=== PATIENT | female | born 1980 | race Caucasian/White ===

== ENCOUNTER 2017-04-21 07:46 | Inpatient (IN) | payer OTHER ==
[~2017-04-21] VITALS: Ht 170.2 cm; Wt 99.0 kg
[2017-04-21 07:57] VITALS: Ht 170.2 cm; Wt 99.0 kg
[2017-04-21] MEDS ORDERED: PREN-93 PO (07:57)
[2017-04-21 07:58] VITALS: BP 129/88; PULSE 81; RESP 18
--- NOTE | 2017-04-21 08:07 | TRIAGE ---
OB Triage Datetime Report Generated by CPN: 04/21/2017 08:07 Datetime: 04/21/2017 07:59 Vaginal Exam Dilatation (cms): 3.0 Effacement (%): 70 Station: -2 Exam By: neil Vaginal Bleeding: None Cervix, Consistency: Soft Cervix, Position: Midposition Datetime: 04/21/2017 07:54 Assessment Type: Triage Maternal Assessment Level of Consciousness: Fully Conscious DTR's/Clonus: DTRs 2+; No Clonus Headache: Denies Blurred Vision: No Respiratory Effort: Unlabored; Regular Rhythm; Equal Expansion Breath Sounds, Left: Clear and Equal Breath Sounds, Right: Clear and Equal Nausea/Vomiting: Denies RUQ Epigastric Pain: Denies Lower Extremities Edema: None Degree: None Upper Extremities Edema: None Degree: None Facial Edema: None Fall Risk Assessment History of Falling: (0) No Secondary Diagnosis: (0) No Ambulatory Aid: (0) Bedrest/Nurse Assist IV Therapy: (0) No Gait: (0) Normal/Bedrest/Immobile Mental Status: (0) Oriented to Own Ability Fall Score: 0 Fall Risk Score Definition: No Risk: No action required Datetime: 04/21/2017 07:53 Time of Arrival: 04/21/2017 07:39 EGA: 39.3 Arrived By: Ambulatory Arrived From: Home Chief Complaint: PT HERE C/O UC'S SINCE 0300 Movement: Present Contractions: Irregular Rupture of Membranes: Denies Vaginal Bleeding: None Vaginal Discharge: Denies Recent Sexual Intercouse: Denies Abdominal Trauma: Not Applicable Patient Complaints: Contractions; Cramping; Back Pain Time Provider Notified: 04/21/2017 08:05 Provider Notified: STANLEY Initial Plan: EFM/SVE Datetime: 04/21/2017 07:51 Labor Evaluation Monitor Mode: External Heart Rate Monitor Mode: External US
[2017-04-21] MEDS ORDERED: IBUPROFEN 600 MG TAB PO PRN (08:30)
[2017-04-21] MEDS ORDERED: AMPICILLIN 2 GM/NS (PMX) 100 ML IV ONE (08:30)
[2017-04-21] MEDS ORDERED: OXYTOCIN 30 UNITS/LR 500 ML IV PRN ×2 (08:30→17:30)
[2017-04-21] MEDS ORDERED: CARBOPROST 250 MCG INJ IM PRN ×2 (08:30→17:30)
[2017-04-21] MEDS ORDERED: METHYLERGONOVINE 0.2 MG INJ IM PRN ×2 (08:30→17:30)
[2017-04-21] MEDS ORDERED: LIDOCAINE 1% (MPF) 30 ML INJ INJ PRN (08:30)
[2017-04-21] MEDS ORDERED: BUTORPHANOL 2 MG INJ IV PRN (08:30)
[2017-04-21] MEDS ORDERED: LACTATED RINGER'S 1,000 ML IV PRN (08:30)
[2017-04-21] MEDS ORDERED: MISOPROSTOL 200 MCG TAB PR PRN ×2 (08:30→17:30)
[2017-04-21] MEDS ORDERED: OXYTOCIN 30 UNITS/LR 500 ML IV SCH (08:30)
[2017-04-21] MEDS: LACTATED RINGER'S 1,000 ML IV SCH ×2 (08:33→10:59)
[2017-04-21] MEDS ORDERED: FENTAnyl 2MCG/ML-ROPIV 0.2% 100 ML ONE (10:22)
[2017-04-21] MEDS ORDERED: MINERAL OIL LIGHT 10 ML VIAL TOP PRN (10:30)
[2017-04-21] MEDS ORDERED: AMPICILLIN 1 GM/NS (PMX) 50 ML IV SCH (12:30)
[2017-04-21] MEDS: OXYTOCIN 30 UNITS/LR 500 ML IV SCH ×2 (14:03→14:05)
--- NOTE | 2017-04-21 14:03 | HP ---
Date/Time of Note Date/Time of Note DATE: 04/21/17 TIME: 14:00 OB - History Hx of Present Free Text/Dictation admitted in labor at term Last Menstrual Period: Jul 19, 2016 Estimated Due Date: Apr 25, 2017 : 5 Para: 4 Care: Good Care Past Family/Social History * Past Medical, Surgical, Family and Obstetric Histories reviewed from chart. Blood Type: O+ Rubella: immune RPR/VDRL: Negative GBS Status: Positive HBsAG: Negative OB Admission Exam Vital Signs Vital Signs Vital Signs Date Time Temp Pulse Resp B/P Pulse Ox O2 Delivery O2 Flow Rate FiO2 04/21/17 07:58 99.1 81 18 129/88 98 Room Air Physical Exam HEENT: WNL Heart: Rhythm Normal Lungs: Clear, Equal Abdomen: WNL Extremities: Normal Reflexes: Normal Cervical Dilatation: 2cm Effacement: 75% Station: -3 Membranes: Intact Heart Rate: 130's Accelerations: Accelerations Present Decelerations: No Decelerations Varibility: Moderate Contractions on Admission: < 5 Minutes Apart Date/Time Contractions Began: 04/21/2017 0300 AM Frequency of Contractions: q 3-4 min Duration: >60 seconds Intensity: Firm Last 72 hours Lab Results CBC & BMP 04/21/17 08:34 OB Assessment/Plan Other Assessment: term gestation labor pains Other plan: proceed with spontaneous labor JEREMY EARLY MD Apr 21, 2017 14:03
--- NOTE | 2017-04-21 14:17 | LDN ---
Date/Time of Note Date/Time of Note DATE: 04/21/17 TIME: 14:15 Delivery Summary Normal spontaneous vaginal delivery of a viable over intact perineum Weeks of Gestation 39+ Placenta Delivered: Spontaneously, Intact & Complete Meconium: Particulate Episiotomy: No Perineal laceration: 0 Anesthesia type: Epidural Estimated blood loss: 300 Sponge & Needle done & correct: Yes All needle counts correct: Yes Any foreign bodies felt in the: No Problems: Infant Delivery Information Sex Infant Sex: male Apgars 1 Minute: 9 5 Minute: 9 Suctioning Nose & mouth suctioned at valentin: Yes Delee suction performed: No Umbilical Cord Umbilical cord with: 3 Vessels Cord presentations: no nuchal cord Cord Blood was obtained: Yes Mother & Baby Disposition Disposition Mom & Baby to Maternity; Good: Yes (Mother and baby were recovered in good condition) Mom transferred to: Other (Maternity) Baby to NICU: No JEREMY EARLY MD Apr 21, 2017 14:17
--- NOTE | 2017-04-21 14:17 | LDN ---
Date/Time of Note Date/Time of Note DATE: 04/21/17 TIME: 14:15 Delivery Summary Normal spontaneous vaginal delivery of a viable over intact perineum Weeks of Gestation 39+ Placenta Delivered: Spontaneously, Intact & Complete Meconium: Particulate Episiotomy: No Perineal laceration: 0 Anesthesia type: Epidural Estimated blood loss: 300 Sponge & Needle done & correct: Yes All needle counts correct: Yes Any foreign bodies felt in the: No Problems: Infant Delivery Information Sex Infant Sex: male Apgars 1 Minute: 9 5 Minute: 9 Suctioning Nose & mouth suctioned at vaelntin: Yes Delee suction performed: No Umbilical Cord Umbilical cord with: 3 Vessels Cord presentations: no nuchal cord Cord Blood was obtained: Yes Mother & Baby Disposition Disposition Mom & Baby to Maternity; Good: Yes (Mother and baby were recovered in good condition) Mom transferred to: Other (Maternity) Baby to NICU: No JEREMY EARLY MD Apr 21, 2017 14:17
[2017-04-21] MEDS ORDERED: DIPHENHYDRAMINE 50 MG INJ IV PRN (14:30)
[2017-04-21] MEDS ORDERED: NALOXONE (0.4 MG/ML) INJ IV PRN (14:30)
[2017-04-21] MEDS ORDERED: ONDANSETRON 4 MG INJ IV PRN (14:30)
[2017-04-21] MEDS ORDERED: FENTAnyl 2MCG/ML-ROPIV 0.2% 100 ML BAG EPI SCH (14:30)
[2017-04-21 17:00] VITALS: BP 121/72; PULSE 51; RESP 17
[2017-04-21] MEDS ORDERED: LACTATED RINGER'S 1,000 ML IV* SCH (17:05)
[2017-04-21] MEDS ORDERED: WITCH HAZEL/GLYCERIN PAD PR PRN (17:30)
[2017-04-21] MEDS ORDERED: DIBUCAINE 1% 30 GM OINT PR PRN (17:30)
[2017-04-21] MEDS ORDERED: BENZOCAINE 20% 56 ML SPRAY TOP PRN (17:30)
[2017-04-21] MEDS ORDERED: HYDROCODONE/APAP (5/325) TAB PO PRN ×2 (17:30)
[2017-04-21] MEDS ORDERED: LANOLIN 7 GM TUBE TOP PRN (17:30)
[2017-04-21] MEDS ORDERED: ZOLPIDEM 5 MG TAB PO PRN (17:30)
[2017-04-21] MEDS: IBUPROFEN 600 MG TAB PO SCH ×2 (17:49→23:32)
[2017-04-21] MEDS: CEPHALEXIN 500 MG CAP PO SCH ×2 (17:49→23:31)
[2017-04-21 19:45] VITALS: BP 108/58; PULSE 69; RESP 17
[2017-04-21] MEDS: MAGNESIUM HYDROXIDE 30ML CUP PO SCH (21:06)
[2017-04-21] MEDS: SENNA/DOCUSATE NA (8.6MG/50MG) TAB PO SCH (21:07)
[2017-04-21 23:32] VITALS: BP 110/60; PULSE 70; RESP 18
[2017-04-22 04:05] VITALS: BP 108/62; PULSE 56; RESP 19
[2017-04-22] MEDS: CEPHALEXIN 500 MG CAP PO SCH ×4 (05:12→23:45)
[2017-04-22] MEDS: IBUPROFEN 600 MG TAB PO SCH ×4 (05:14→23:45)
[2017-04-22 08:25] VITALS: BP 114/74; PULSE 59; RESP 18
[2017-04-22] MEDS: SENNA/DOCUSATE NA (8.6MG/50MG) TAB PO SCH ×2 (10:07→21:00)
[2017-04-22] MEDS: MAGNESIUM HYDROXIDE 30ML CUP PO SCH ×2 (10:07→21:00)
[2017-04-22 11:46] VITALS: BP 125/81; PULSE 72; RESP 20
--- NOTE | 2017-04-22 14:28 | DS ---
Date/Time of Note Date/Time of Note Home following day DATE: 04/22/17 TIME: 14:27 Obstetrical Discharge Record Final Diagnosis Final Diagnosis: Term delivered Other Final Diagnosis Status post vaginal delivery Vaginal Delivery Obstetrical Delivery: Spontaneous Complications Augmentation: Yes Condition on Discharge Physical Assessment Last Vitals: See nurse's notes Voiding: Yes Bowel Movement: Yes Breast: Soft, non-tender, Filling Fundus: Firm Abdomen and Incision: Abdomen is soft bowel sounds present Episiotomy: Not applicable Calf Tenderness: No Patient Condition: Good JEREMY EARLY MD Apr 22, 2017 14:28
--- NOTE | 2017-04-22 14:29 | PD.PPDC ---
CAMPUS ADMINISTRATIVE ASSISTANT Discharge Instruction Provider Information Physician Information 36-year-old female had vaginal delivery Diagnosis Final Diagnosis: Status post vaginal delivery Condition Patient Condition: Good Diet Diet: Resume Regular Diet Activity/Restrictions Activity: Normal Activity May Shower Return to Work or School: Jun 06, 2017 Follow-up Follow-up with Physician: 4, Week/Weeks (In clinic) Return to clinic for OB Instructions: Breast Tenderness Depression Comment: Pelvic rest 6 weeks JEREMY EARLY MD Apr 22, 2017 14:29
[2017-04-22] MEDS ORDERED: IBUP-1542 PO (14:30)
[2017-04-22 15:40] VITALS: BP 112/68; PULSE 55; RESP 16
[2017-04-22 19:45] VITALS: BP 117/75; PULSE 63; RESP 18
[2017-04-23 04:59] VITALS: BP 114/78; PULSE 55; RESP 18
[2017-04-23] MEDS: CEPHALEXIN 500 MG CAP PO SCH ×2 (05:53→13:00)
[2017-04-23] MEDS: IBUPROFEN 600 MG TAB PO SCH ×2 (05:53→13:00)
[2017-04-23] MEDS ORDERED: MEASLES,MUMPS,RUBELLA VACCINE INJ SC* ONE (09:00)
[2017-04-23] MEDS: SENNA/DOCUSATE NA (8.6MG/50MG) TAB PO SCH ×2 (09:00→09:43)
[2017-04-23] MEDS ORDERED: VARICELLA VACCINE LIVE/PF 1,350 UNIT/0.5 ML ML SC* ONE (09:00)
[2017-04-23] MEDS ORDERED: DIPHTH/TET/ACEL PERTUSS (ADULT) 0.5 ML VIAL IM* ONE (09:00)
[2017-04-23] MEDS: MAGNESIUM HYDROXIDE 30ML CUP PO SCH ×2 (09:00→09:43)
[2017-04-23 09:15] VITALS: BP 123/83; PULSE 81; RESP 18
== END 2017-04-23 15:20 | disposition home or self-care (01) | DRG 775 ==
LOC: OBT 07:46 → L-D 07:46 → OBT 08:16 → PP1 16:50
PROVIDERS: ADMIT Obstetrics & Gynecology; ATTEND Obstetrics & Gynecology
PROC: 10E0XZZ Delivery of Products of Conception, External Approach (ICD-10-PCS; principal; 2017-04-21)
PROC: 3E0P3VZ Introduction of Hormone into Female Reproductive, Percutaneous Approach (ICD-10-PCS; 2017-04-21)
DX: O99.214 Obesity complicating childbirth (principal); E66.01 Morbid (severe) obesity due to excess calories; Z68.34 Body mass index [BMI] 34.0-34.9, adult; Z3A.39 39 weeks gestation of pregnancy; Z37.0 Single live birth
CPT/HCPCS: 36415; 62319; 85025; 85610; 85730; 86592; 86900; 86901; 87340; 90715; 90716; G0463; J0290; J2590; J3010; J7120

== ENCOUNTER 2018-06-25 02:28 | Inpatient (IN) | payer OTHER ==
[~2018-06-25] VITALS: Ht 170.2 cm; Wt 96.7 kg
[~2018-06-25 02:28] MED LIST: IBUP-1542 PO; PREN-93 PO
[2018-06-25 02:47] VITALS: Ht 170.2 cm; Wt 96.7 kg
--- NOTE | 2018-06-25 02:55 | TRIAGE ---
OB Triage Datetime Report Generated by CPN: 06/25/2018 02:54 Datetime: 06/25/2018 02:48 Time of Arrival: 06/25/2018 02:25 EGA: 39.5 Arrived By: Wheelchair Arrived From: Home Movement: Present Contractions: Denies/Absent Time Contractions Began: 06/24/2018 21:00 Rupture of Membranes: Denies Vaginal Bleeding: None Vaginal Discharge: Denies Recent Sexual Intercouse: Denies Abdominal Trauma: Not Applicable Patient Complaints: Contractions Time Provider Notified: 06/25/2018 02:38 Provider Notified: [email or web address]/[email or web address] Datetime: 06/25/2018 02:33 Vaginal Exam Dilatation (cms): 4.0 Effacement (%): 70 Station: -3 Exam By: geovanny almanzar Vaginal Bleeding: None Cervix, Consistency: Soft Cervix, Position: Midposition Presentation 'A': Cephalic Datetime: 06/25/2018 02:29 Stage of : OB Triage
[2018-06-25 03:00] VITALS: BP 126/81; PULSE 66; RESP 20
[2018-06-25] MEDS ORDERED: LIDOCAINE 1% (MPF) 30 ML INJ INJ PRN (03:00)
[2018-06-25] MEDS ORDERED: MINERAL OIL LIGHT 10 ML VIAL TOP PRN (03:00)
[2018-06-25] MEDS ORDERED: OXYTOCIN 30 UNITS/LR 500 ML IV SCH (03:00)
[2018-06-25] MEDS ORDERED: METHYLERGONOVINE 0.2 MG INJ IM PRN ×2 (03:00→12:30)
[2018-06-25] MEDS ORDERED: AMPICILLIN 2 GM/NS (PMX) 100 ML IV ONE (03:00)
[2018-06-25] MEDS ORDERED: CARBOPROST 250 MCG INJ IM PRN ×2 (03:00→12:30)
[2018-06-25] MEDS ORDERED: IBUPROFEN 600 MG TAB PO PRN (03:00)
[2018-06-25] MEDS ORDERED: BUTORPHANOL 2 MG INJ IV PRN (03:00)
[2018-06-25] MEDS ORDERED: MISOPROSTOL 200 MCG TAB PR PRN ×2 (03:00→12:30)
[2018-06-25] MEDS ORDERED: OXYTOCIN 30 UNITS/LR 500 ML IV PRN ×2 (03:00→12:30)
[2018-06-25] MEDS: LACTATED RINGER'S 1,000 ML IV SCH ×2 (03:18→05:02)
--- NOTE | 2018-06-25 04:55 | PREAC ---
Date/Time of Note Date/Time of Note DATE: 06/25/18 TIME: 04:54 Anesthesia Eval and Record Evaluation Time Pre-Procedure Interview DATE: 06/25/18 TIME: 03:59 Age 38 Sex female NPO: 8 hrs Preoperative diagnosis iup @ 38 wks, , labor Planned procedure marilynn Past Medical History Past Medical History: Includes : : (6), Para: (5) Surgery & Anesthesia Issues No known issue Meds Anticoagulation: No Beta Jose within 24 hr: No Reason Beta Jose not given: Pt. not on B-Jose Active Scripts Ibuprofen* (Ibuprofen*) 600 Mg Tablet, 600 MG PO Q6, #30 TAB 0 Refills Prov:JEREMY EARLY MD 04/22/17 Reported Medications Vit No.124/Iron/FA ( Vitamin Tablet) 1 Each Tablet, 1 EACH PO DAILY, TAB 04/21/17 Current Medications Lactated Ringer's 1,000 ml @ 125 mls/hr Q8H IV Last administered on 06/25/18at 03:18; Admin Dose 125 MLS/HR; Start 06/25/18 at 02:44 Ampicillin 50 ml @ 100 mls/hr Q4H IV ; Start 06/25/18 at 07:00 Butorphanol Tartrate (Stadol) 2 mg Q2H PRN IV PAIN; Start 06/25/18 at 03:00 Lidocaine (Xylocaine 1% (Mpf)) 30 ml ONCE PRN INJ EPISIOTOMY; Start 06/25/18 at 03:00 Oxytocin/Lactated Ringer's 500 ml @ 500 mls/hr ONCE POST IV ; Start 06/25/18 at 03:00 Oxytocin/Lactated Ringer's 500 ml @ 125 mls/hr POST IV ; Start 06/25/18 at 03:00 Ibuprofen (Motrin) 600 mg ONCE PRN PO PAIN LEVEL 1-5; Start 06/25/18 at 03:00 Oxytocin/Lactated Ringer's 500 ml @ 0 mls/hr ONCE PRN IV VAGINAL BLEEDING; Start 06/25/18 at 03:00 Methylergonovine Maleate (Methergine) 0.2 mg ONCE PRN IM VAGINAL BLEEDING; Start 06/25/18 at 03:00 Carboprost Tromethamine (Hemabate) 250 mcg ONCE PRN IM VAGINAL BLEEDING; Start 06/25/18 at 03:00 Misoprostol (Cytotec) 1,000 mcg ONCE PRN WV VAGINAL BLEEDING; Start 06/25/18 at 03:00 Mineral Oil (Muri-Lube) 20 ml ONCE PRN TOP vaginal delivery; Start 06/25/18 at 03:00 Meds reviewed: Yes Allergies Coded Allergies: No Known Allergy (Verified , 06/25/18) Allergies Reviewed: Yes Labs/Studies Labs Reviewed: Reviewed by anesthesiologist Result Diagram: 06/25/18 0310 Laboratory Tests 06/25/18 03:10 Blood Bank Test 06/25/18 03:10 Antibody Screen NEGATIVE Blood Type O POSITIVE Rh Immune Globulin Candidate NO test: Positive Studies: ECG (n/a), CXR (n/a) Pre-procedure Exam Last vitals Vital Signs Date Temp Pulse Resp B/P (MAP) Pulse Ox O2 O2 Flow FiO2 Time Delivery Rate 06/25/18 98.5 66 20 126/81 Room Air 03:00 (96) Airway: Adequate mouth opening, Adequate thyromental dist Mallampati: Mallampati II Teeth: Normal Lung: Normal Heart: Normal ASA Physical Status ASA physical status: 2 Emergency: E Planned Anesthetic Neuraxial: Epidural Planned Pain Management Local by surgeon Pre-operative Attestations Prior to commencing anesthesia and surgery, the patient was re-evaluated, there was verification of: *The patient's identity *The results of appropriate recent lab work and preoperative vital signs *The above evaluation not changing prior to induction *Anesthetic plan, risk benefits, alternative and complications discussed with patient/family; questions answered; patient/family understands, accepts and wishes to proceed. [employer] Agent used ERIC BOLDEN MD Jun 25, 2018 04:55
--- NOTE | 2018-06-25 04:56 | PAC ---
Date/Time of Note Date/Time of Note DATE: 06/25/18 TIME: 23:30 Post-Anesthesia Notes Post-Anesthesia Note Last documented vital signs Vital Signs Date Temp Pulse Resp B/P (MAP) Pulse Ox O2 O2 Flow FiO2 Time Delivery Rate 06/25/18 98.5 66 20 126/81 Room Air 03:00 (96) Activity: WNL Respiratory function: WNL Cardiovascular function: WNL Mental status: Baseline Pain reasonably controlled: Yes Hydration appropriate: Yes Nausea/Vomiting absent: Yes ERIC BOLDEN MD Jun 25, 2018 04:56
[2018-06-25] MEDS ORDERED: FENTAnyl 2MCG/ML-ROPIV 0.2% 100 ML ONE (04:57)
[2018-06-25] MEDS ORDERED: DIPHENHYDRAMINE 50 MG INJ IV PRN (05:00)
[2018-06-25] MEDS ORDERED: NALOXONE (0.4 MG/ML) INJ IV PRN (05:00)
[2018-06-25] MEDS ORDERED: FENTAnyl 2MCG/ML-ROPIV 0.2% 100 ML BAG EPI SCH (05:00)
[2018-06-25] MEDS ORDERED: NALBUPHINE HCL (10 MG/1 ML) INJ IV PRN (05:00)
[2018-06-25] MEDS ORDERED: AMPICILLIN 1 GM/NS (PMX) 50 ML IV SCH (07:00)
[2018-06-25] MEDS: OXYTOCIN 30 UNITS/LR 500 ML IV SCH ×2 (09:59→10:29)
--- NOTE | 2018-06-25 09:59 | HP ---
Date/Time of Note Date/Time of Note DATE: 06/25/18 TIME: 09:56 OB - History Hx of Present Free Text/Dictation 38-year-old female 6 para 5 at 39 weeks and 5 days gestation admitted complaining of onset of uterine contractions started 9 PM every 5 7-minute Estimated Due Date: Jun 27, 2018 : 6 Para: 5 Care: Good Care Ultrasounds: Normal mid trimester US Obstetrical Complications: Other (Grand multiparity and advanced maternal age) Medical Complications: None Past Family/Social History * Past Medical, Surgical, Family and Obstetric Histories reviewed from chart. Blood Type: O+ Rubella: immune RPR/VDRL: Negative GBS Status: Positive HBsAG: Negative OB Admission Exam Vital Signs Vital Signs Vital Signs Date Temp Pulse Resp B/P (MAP) Pulse Ox O2 O2 Flow FiO2 Time Delivery Rate 06/25/18 98.5 66 20 126/81 Room Air 03:00 (96) Physical Exam HEENT: WNL Heart: Rhythm Normal Lungs: Clear, Equal Abdomen: WNL Extremities: Normal Reflexes: Normal Cervical Dilatation: 4cm Effacement: 75% Station: -3 Membranes: Intact Heart Rate: 140's Accelerations: Accelerations Present Decelerations: No Decelerations Varibility: Moderate Contractions on Admission: 6-10 Minutes Apart Date/Time Contractions Began: June 24, 2018 at 2100 p.m. Frequency of Contractions: Every 5-7 minutes Duration: Over 1 minute Intensity: Moderate Last 72 hours Lab Results CBC & BMP 06/25/18 03:10 OB Assessment/Plan Other Assessment: Term gestation and labor pains Other plan: Proceed with spontaneous labor JEREMY EARLY MD Jun 25, 2018 09:59
[2018-06-25] MEDS ORDERED: KETOROLAC 30 MG INJ IV STA (10:02)
--- NOTE | 2018-06-25 10:02 | LDN ---
Date/Time of Note Date/Time of Note DATE: 06/25/18 TIME: 10:00 Delivery Summary Normal spontaneous vaginal delivery of a viable infant over intact perineum Weeks of Gestation 39 weeks and 5 days Placenta Delivered: Spontaneously, Intact & Complete Meconium: Light Episiotomy: No Perineal laceration: 0 Anesthesia type: Epidural Estimated blood loss: 200 Sponge & Needle done & correct: Yes All needle counts correct: Yes Any foreign bodies felt in the: No Infant Delivery Information Sex Infant Sex: female Apgars 1 Minute: 8 5 Minute: 9 Suctioning Nose & mouth suctioned at valentin: Yes Delee suction performed: No Umbilical Cord Umbilical cord with: 3 Vessels Cord presentations: nuchal cord Nuchal cord present X: 1 Cord Blood was obtained: Yes Mother & Baby Disposition Disposition Mom & Baby to Maternity; Good: Yes (Mother and baby were recovering in good condition) Mom transferred to: Other (Maternity) Baby to NICU: No JEREMY EARLY MD Jun 25, 2018 10:02
[2018-06-25 12:15] VITALS: BP 133/74; PULSE 47; RESP 20
[2018-06-25] MEDS ORDERED: HYDROCODONE/APAP (5/325) TAB PO PRN ×2 (12:30)
[2018-06-25] MEDS ORDERED: DIBUCAINE 1% 30 GM OINT TOP PRN (12:30)
[2018-06-25] MEDS ORDERED: ZOLPIDEM 5 MG TAB PO PRN (12:30)
[2018-06-25] MEDS ORDERED: LANOLIN HPA 1 PKT TOP PRN (12:30)
[2018-06-25] MEDS ORDERED: WITCH HAZEL/GLYCERIN PAD PR PRN (12:30)
[2018-06-25] MEDS ORDERED: BENZOCAINE 20% 56 ML SPRAY TOP PRN (12:30)
[2018-06-25 12:55] VITALS: BP 130/78; PULSE 60; RESP 20
[2018-06-25] MEDS: CEPHALEXIN 500 MG CAP PO SCH ×3 (12:55→23:48)
[2018-06-25] MEDS: IBUPROFEN 600 MG TAB PO SCH ×3 (12:55→23:49)
[2018-06-25] MEDS: LACTATED RINGER'S 1,000 ML IV* SCH ×2 (14:42→20:14)
[2018-06-25 15:37] VITALS: BP 111/64; PULSE 60; RESP 16
[2018-06-25 19:55] VITALS: BP 116/71; PULSE 61
[2018-06-25] MEDS: SENNA/DOCUSATE NA (8.6MG/50MG) TAB PO SCH (21:20)
[2018-06-25] MEDS: MAGNESIUM HYDROXIDE 30ML CUP PO SCH (21:20)
[2018-06-26] VITALS: BP 110/62; PULSE 58; RESP 16
[2018-06-26 04:10] VITALS: BP 110/60; PULSE 63; RESP 18
[2018-06-26] MEDS: LACTATED RINGER'S 1,000 ML IV* SCH ×3 (04:14→20:14)
[2018-06-26] MEDS: IBUPROFEN 600 MG TAB PO SCH ×3 (05:56→17:35)
[2018-06-26] MEDS: CEPHALEXIN 500 MG CAP PO SCH ×3 (05:56→17:34)
[2018-06-26 08:20] VITALS: BP 104/60; PULSE 59; RESP 18
[2018-06-26] MEDS: SENNA/DOCUSATE NA (8.6MG/50MG) TAB PO SCH ×2 (09:00→20:37)
[2018-06-26] MEDS: MAGNESIUM HYDROXIDE 30ML CUP PO SCH ×2 (09:00→20:37)
--- NOTE | 2018-06-26 14:57 | DS ---
Date/Time of Note Date/Time of Note Home today or next day DATE: 06/26/18 TIME: 14:56 Obstetrical Discharge Record Final Diagnosis Final Diagnosis: Term delivered Other Final Diagnosis Status post vaginal delivery Vaginal Delivery Obstetrical Delivery: Spontaneous Condition on Discharge Physical Assessment Last Vitals: See nurse's notes Voiding: Yes Bowel Movement: Yes Breast: Soft, non-tender, Filling Fundus: Firm Abdomen and Incision: Abdomen is soft with present bowel sounds Fundus is firm at the U Episiotomy: Not applicable There are numerous clean Calf Tenderness: No Patient Condition: Good JEREMY EARLY MD Jun 26, 2018 14:57
--- NOTE | 2018-06-26 14:58 | PD.PPDC ---
TRANSPORT AIDE Discharge Instruction Provider Information Physician Information 38-year-old female had vaginal delivery Diagnosis [id number] Final Diagnosis: Bziea2p Status post vaginal delivery Condition [id number] Patient Condition: [id number] Good Diet [id number] Diet: [id number] Resume Regular Diet Activity/Restrictions [id number] Activity: Aophr1m Normal Activity May Shower [id number] Restrictions: [id number] Nothing in the Vagina [id number] Return to Work or School: [id number] Aug 14, 2018 Follow-up Follow-up with Physician: 2, 4, Week/Weeks (In clinic) Return to clinic for [id number] OB Instructions: Jeavw4a Breast Tenderness Depression Comment: Pelvic rest for 6 weeks JEREMY EARLY MD Jun 26, 2018 14:58
[2018-06-26] MEDS ORDERED: IBUP-1542 PO (14:59)
[2018-06-26 16:00] VITALS: BP 121/72; PULSE 59; RESP 18
[2018-06-26 19:30] VITALS: BP 133/82; PULSE 64; RESP 18
[2018-06-26] MEDS: ACETAMINOPHEN 325 MG TAB PO SCH (19:34)
[2018-06-27] MEDS: CEPHALEXIN 500 MG CAP PO SCH ×3 (00:44→12:01)
[2018-06-27] MEDS: IBUPROFEN 600 MG TAB PO SCH ×3 (00:44→12:01)
[2018-06-27] MEDS: ACETAMINOPHEN 325 MG TAB PO SCH ×2 (00:44→09:17)
[2018-06-27] MEDS: LACTATED RINGER'S 1,000 ML IV* SCH (04:14)
[2018-06-27 04:24] VITALS: BP 113/69; PULSE 58; RESP 18
[2018-06-27 07:50] VITALS: BP 126/74; PULSE 55; RESP 18
[2018-06-27] MEDS ORDERED: VARICELLA VACCINE LIVE/PF 1,350 UNIT/0.5 ML ML SC* ONE (09:00)
[2018-06-27] MEDS: MAGNESIUM HYDROXIDE 30ML CUP PO SCH (09:00)
[2018-06-27] MEDS: SENNA/DOCUSATE NA (8.6MG/50MG) TAB PO SCH (09:00)
[2018-06-27] MEDS ORDERED: DIPHTH/TET/ACEL PERTUSS (ADULT) 0.5 ML VIAL IM* ONE (09:00)
[2018-06-27] MEDS ORDERED: MEASLES,MUMPS,RUBELLA VACCINE INJ SC* ONE (09:00)
== END 2018-06-27 15:43 | disposition home or self-care (01) | DRG 807 ==
LOC: OBT 02:28 → L-D 02:30 → OBT 02:39 → L-D 02:39 → PP1 12:11
PROVIDERS: ADMIT Obstetrics & Gynecology; ATTEND Obstetrics & Gynecology
PROC: 10E0XZZ Delivery of Products of Conception, External Approach (ICD-10-PCS; principal; 2018-06-25)
DX: O69.81X0 Labor and delivery complicated by cord around neck, without compression, not applicable or unspecified (principal); Z37.0 Single live birth; O77.0 Labor and delivery complicated by meconium in amniotic fluid; O99.824 Streptococcus B carrier state complicating childbirth; Z3A.39 39 weeks gestation of pregnancy
CPT/HCPCS: 62319; 85025; 85610; 85730; 86592; 86850; 86900; 86901; 87340; 99464; G0463; J0290; J2590; J3010; J7120